=== PATIENT | female | born 1940 | race American Indian/Alaskan Native ===

== ENCOUNTER 2020-08-21 08:00 | Outpatient (CLI) | payer OTHER ==
[~2020-08-21 08:00] MED LIST: ACCUPRIL40 MG PO; CRESTOR20 MG PO; EVISTA60 MG PO; TOPROL XL100 MG PO; ZETIA10 MG PO
== END 2020-08-21 08:30 | disposition home or self-care (01) ==
LOC: PPH VACUNA 08:00
DX: Z23 Encounter for immunization (principal)

== ENCOUNTER → 2021-03-26 | Outpatient (CLI) | payer OTHER | END | disposition home or self-care (01) | LOC: PPH VACUNA 08:00 | PROVIDERS: ATTEND Emergency Medicine Pediatric Emergency Medicine | DX: Z23 Encounter for immunization (principal) ==

== ENCOUNTER 2024-12-07 11:05 | Emergency (ER) | payer OTHER ==
[~2024-12-07] VITALS: Ht 157.5 cm; Wt 68.0 kg
[2024-12-07 11:23] VITALS: BP 130/75; O2SAT 96
[2024-12-07] MEDS ORDERED: ORPHENADRINE CITRATE 30 MG/ML AMPUL IM ONE (13:30)
[2024-12-07] MEDS ORDERED: CYCLOBENZAPRIN7.5 MG PO (13:30)
[2024-12-07] MEDS ORDERED: ACETAMINOPHEN 500 MG GEL..CAP PO ONE ×2 (13:30→13:32)
[2024-12-07] MEDS ORDERED: MELOXICAM7.5 MG PO (13:30)
[2024-12-07] MEDS ORDERED: KETOROLAC TROMETHAMINE 60 MG VIAL IM ONE ×2 (13:30→13:31)
[2024-12-07] MEDS ORDERED: MEDROLPACK PO (13:30)
[2024-12-07] MEDS ORDERED: PEPCID AC20 MG PO (13:30)
[2024-12-07] MEDS ORDERED: DEXAMETHASONE SODIUM PHOSPHATE 4 MG/ML VIAL IM ONE (13:30)
[2024-12-07] MEDS ORDERED: ORPHENADRINE CITRATE 30 MG/ML AMPUL ONE (13:31)
[2024-12-07] MEDS ORDERED: DEXAMETHASONE SODIUM PHOSPHATE 4 MG/ML VIAL ONE (13:32)
== END 2024-12-07 13:54 | disposition home or self-care (01) ==
LOC: ER 11:06
DX: M54.16 Radiculopathy, lumbar region (principal); Z88.0 Allergy status to penicillin; I10 Essential (primary) hypertension; E78.49 Other hyperlipidemia
CPT/HCPCS: 96372; J1100; J1885; J2360